=== PATIENT | male | born 1945 | race Caucasian/White ===

== ENCOUNTER 2021-05-06 12:20 | Inpatient (IN) ==
[2021-05-06] MEDS ORDERED: Naloxone 0.4 MG/ML INJ IVP PRN (14:56)
[2021-05-06] MEDS ORDERED: Ondansetron 4 MG/2 ML VIAL IVP PRN (14:56)
[2021-05-06] MEDS ORDERED: Dextrose Gel 15 GM/37.5 ML TUBE PO PRN ×2 (15:02)
[2021-05-06] MEDS ORDERED: D5% in Water 1,000 ML IVC PRN (15:02)
[2021-05-06] MEDS ORDERED: *HR* Dextrose 50 % in Water (Vial) 50 ML VIAL IVP PRN (15:02)
[2021-05-06] MEDS ORDERED: 0.9 % Sodium Chloride 1,000 ML IVC SCH (15:45)
[2021-05-06] MEDS: Piperacillin/Tazobactam 3.375 GM in 0.9 % Sodium Chloride Mini Bag 100 ML IVPB SCH ×2 (16:07→23:48)
[2021-05-06 16:29] LABS: Basophils % 0.2 %; Eosinophils # 0.3 K/mcL (0.0-0.6); Eosinophils % 3.3 %; Hematocrit 26.5 % (37.5-50.1); Hemoglobin 8.6 g/dL (12.9-16.9); Immature Granulocytes % 0.6 % (0-4); Lymphocytes # 1.2 K/mcL (0.6-4.6); Lymphocytes % 13.9 %; Mean Corpuscular HGB Conc 32.5 g/dL (31.6-35.5); Mean Corpuscular Hemoglobin 28.2 pg (28.0-33.3); Mean Corpuscular Volume 86.9 fL (83.0-100.0); Mean Platelet Volume 11.2 fL (9.4-12.4); Monocytes # 0.9 K/mcL (0.0-1.3); Platelet Count 145 K/mcL (140-400); Red Blood Count 3.05 M/mcL (4.19-5.50); Red Cell Distribution Width 15.5 % (11.5-14.5); White Blood Count 8.5 K/mcL (4.3-11.1)
[2021-05-06 16:37] LABS: INR 1.4; Prothrombin Time 15.8 Seconds (9.4-12.1)
[2021-05-06 16:40] LABS: Activated Partial Thrombo Time 35.6 Seconds (26.0-36.0)
[2021-05-06 16:48] LABS: Alanine Aminotransferase 15 Units/L (7-52); Albumin 3.1 g/dL (3.5-5.7); Alkaline Phosphatase 73 Units/L (34-104); Aspartate Amino Transferase 27 Units/L (13-39); BUN/Creatinine Ratio 30 (6-26); Bilirubin,Total 0.9 mg/dL (0.3-1.0); Blood Urea Nitrogen 35 mg/dL (8-23); Calcium 8.1 mg/dL (8.6-10.3); Carbon Dioxide 25 mEq/L (23-29); Chloride 100 mEq/L (98-107); Globulin 3.1 g/dL (2.4-3.5); Glucose 233 mg/dL (70-105); Magnesium 1.4 mg/dL (1.6-2.6); Osmolality,Calculated 293 (280-300); Phosphorous 2.2 mg/dL (2.7-4.5); Potassium 3.4 mEq/L (3.5-5.1); Sodium 134 mEq/L (136-145); Total Protein 6.2 g/dL (6.4-8.9); eGFR For African Americans > 60 (> 60); eGFR For Non-African Americans > 60 (> 60)
[2021-05-06] MEDS: Metoclopramide 10 MG/2 ML VIAL IVP SCH ×2 (17:37→23:48)
[2021-05-06] MEDS: *HR* Heparin 5,000 UNIT/ML VIAL SQ SCH (17:38)
[2021-05-06] MEDS: Insulin LISPRO 300 UNITS/3 ML VIAL SUBQ SCH (17:38)
[2021-05-06] MEDS: *HR* HYDROcodone/Acet 5/325 mg TABLET PO PRN (23:47)
[2021-05-07] MEDS: Insulin LISPRO 300 UNITS/3 ML VIAL SUBQ SCH ×4 (01:20→17:15)
[2021-05-07] MEDS: Metoclopramide 10 MG/2 ML VIAL IVP SCH ×4 (06:25→22:49)
[2021-05-07] MEDS: *HR* Heparin 5,000 UNIT/ML VIAL SQ SCH ×2 (06:25→17:14)
[2021-05-07] MEDS: Primidone 50 MG TABLET PO SCH ×2 (07:43→20:32)
[2021-05-07] MEDS: Piperacillin/Tazobactam 3.375 GM in 0.9 % Sodium Chloride Mini Bag 100 ML IVPB SCH ×2 (07:44→17:11)
[2021-05-07] MEDS: Gabapentin 300 MG CAPSULE PO SCH ×5 (07:44→20:32)
[2021-05-07] MEDS: *HR* HYDROcodone/Acet 5/325 mg TABLET PO PRN ×2 (08:04→17:13)
[2021-05-07] MEDS: carvediloL 25 MG TABLET PO SCH (18:31)
[2021-05-07] MEDS: (Cyclosporine [Restasis] 1 EACH Droperette) OP SCH (20:33)
[2021-05-08] MEDS: Metoclopramide 10 MG/2 ML VIAL IVP SCH ×3 (05:39→18:43)
[2021-05-08] MEDS: *HR* Heparin 5,000 UNIT/ML VIAL SQ SCH ×2 (05:44→18:44)
[2021-05-08] MEDS: Insulin LISPRO 300 UNITS/3 ML VIAL SUBQ SCH ×4 (05:52→18:44)
[2021-05-08 06:45] LABS: Basophils % 0.5 %; Eosinophils # 0.3 K/mcL (0.0-0.6); Eosinophils % 4.3 %; Hematocrit 24.3 % (37.5-50.1); Hemoglobin 7.6 g/dL (12.9-16.9); Immature Granulocytes % 0.5 % (0-4); Lymphocytes # 1.2 K/mcL (0.6-4.6); Lymphocytes % 20.7 %; Mean Corpuscular HGB Conc 31.3 g/dL (31.6-35.5); Mean Corpuscular Volume 86.2 fL (83.0-100.0); Mean Platelet Volume 11.3 fL (9.4-12.4); Monocytes # 0.7 K/mcL (0.0-1.3); Monocytes % 11.5 %; Neutrophils # 3.6 K/mcL (1.6-8.9); Platelet Count 171 K/mcL (140-400); Red Blood Count 2.82 M/mcL (4.19-5.50); Red Cell Distribution Width 14.9 % (11.5-14.5); Segmented Neutrophils % 62.5 %; White Blood Count 5.8 K/mcL (4.3-11.1)
[2021-05-08 07:01] LABS: BUN/Creatinine Ratio 27 (6-26); Blood Urea Nitrogen 24 mg/dL (8-23); Calcium 8.1 mg/dL (8.6-10.3); Carbon Dioxide 25 mEq/L (23-29); Chloride 103 mEq/L (98-107); Glucose 200 mg/dL (70-105); Osmolality,Calculated 292 (280-300); Potassium 3.5 mEq/L (3.5-5.1); Sodium 136 mEq/L (136-145); eGFR For African Americans > 60 (> 60); eGFR For Non-African Americans > 60 (> 60)
[2021-05-08] MEDS: (Cyclosporine [Restasis] 1 EACH Droperette) OP SCH ×2 (08:36→20:46)
[2021-05-08] MEDS: Piperacillin/Tazobactam 3.375 GM in 0.9 % Sodium Chloride Mini Bag 100 ML IVPB SCH ×3 (08:37→15:47)
[2021-05-08] MEDS: carvediloL 25 MG TABLET PO SCH ×2 (08:38→18:44)
[2021-05-08] MEDS: Losartan/HCTZ 50-12.5 TABLET PO SCH (08:38)
[2021-05-08] MEDS: Primidone 50 MG TABLET PO SCH ×2 (08:38→20:36)
[2021-05-08] MEDS: Aspirin 81 MG TAB.CHEW PO SCH (08:38)
[2021-05-08] MEDS: Verapamil ER (24 HR) 120 MG TABLET.ER PO SCH (08:38)
[2021-05-08] MEDS: Gabapentin 300 MG CAPSULE PO SCH ×4 (08:38→20:36)
[2021-05-09] MEDS: Metoclopramide 10 MG/2 ML VIAL IVP SCH ×4 (03:25→16:32)
[2021-05-09] MEDS: Piperacillin/Tazobactam 3.375 GM in 0.9 % Sodium Chloride Mini Bag 100 ML IVPB SCH ×2 (03:25→10:08)
[2021-05-09] MEDS: Insulin LISPRO 300 UNITS/3 ML VIAL SUBQ SCH ×4 (03:27→16:33)
[2021-05-09 06:05] LABS: Basophils % 0.5 %; Eosinophils # 0.3 K/mcL (0.0-0.6); Eosinophils % 4.7 %; Immature Granulocytes % 0.9 % (0-4); Lymphocytes # 1.3 K/mcL (0.6-4.6); Lymphocytes % 23.7 %; Mean Corpuscular Hemoglobin 27.4 pg (28.0-33.3); Mean Corpuscular Volume 85.6 fL (83.0-100.0); Mean Platelet Volume 10.8 fL (9.4-12.4); Monocytes # 0.7 K/mcL (0.0-1.3); Monocytes % 12.1 %; Neutrophils # 3.2 K/mcL (1.6-8.9); Platelet Count 206 K/mcL (140-400); Red Blood Count 2.92 M/mcL (4.19-5.50); Red Cell Distribution Width 15.3 % (11.5-14.5); Segmented Neutrophils % 58.1 %; White Blood Count 5.6 K/mcL (4.3-11.1)
[2021-05-09] MEDS: *HR* Heparin 5,000 UNIT/ML VIAL SQ SCH (06:19)
[2021-05-09 06:30] LABS: BUN/Creatinine Ratio 27 (6-26); Blood Urea Nitrogen 22 mg/dL (8-23); Calcium 8.2 mg/dL (8.6-10.3); Carbon Dioxide 28 mEq/L (23-29); Chloride 103 mEq/L (98-107); Glucose 201 mg/dL (70-105); Osmolality,Calculated 293 (280-300); Potassium 3.3 mEq/L (3.5-5.1); Sodium 137 mEq/L (136-145); eGFR For African Americans > 60 (> 60); eGFR For Non-African Americans > 60 (> 60)
[2021-05-09] MEDS: *HR* HYDROcodone/Acet 5/325 mg TABLET PO PRN (10:04)
[2021-05-09] MEDS: Verapamil ER (24 HR) 120 MG TABLET.ER PO SCH (10:05)
[2021-05-09] MEDS: Primidone 50 MG TABLET PO SCH (10:05)
[2021-05-09] MEDS: Gabapentin 300 MG CAPSULE PO SCH ×2 (10:05→16:31)
[2021-05-09] MEDS: Losartan/HCTZ 50-12.5 TABLET PO SCH (10:05)
[2021-05-09] MEDS: Aspirin 81 MG TAB.CHEW PO SCH (10:06)
[2021-05-09] MEDS: carvediloL 25 MG TABLET PO SCH ×2 (10:06→16:32)
[2021-05-09] MEDS: (Cyclosporine [Restasis] 1 EACH Droperette) OP SCH (10:10)
[2021-05-09 14:37] LABS: Influenza A PCR Negative (Negative); Influenza B PCR Negative (Negative); Resp. Syncytial Virus PCR Negative (Negative); SARS-CoV-2 by PCR (In House) Negative (Negative)
[2021-05-09 15:25] VITALS: BP 133/69
== END 2021-05-09 17:05 | disposition other institution (70) | DRG 392 ==
LOC: INTOOBSV 14:42 → 3NENU 14:42 → SUATTDRO 05-08 15:23
PROVIDERS: ADMIT Internal Medicine; ATTEND Family Medicine